=== PATIENT | male | born 1985 | race African-American/Black ===

== ENCOUNTER 2016-05-02 18:45 | Emergency (ER) | payer MEDICAID ==
[2016-05-02] MEDS ORDERED: KETOROLAC 30 MG/ML VIAL ONE (20:35)
[2016-05-02] MEDS ORDERED: ED CLINDAMYCIN PREMIX 50 ML IV ONE ×2 (21:52→22:03)
== END 2016-05-02 23:03 | disposition home or self-care (01) ==
LOC: ER 18:45
DX: S56.32 Laceration of extensor or abductor muscles, fascia and tendons of thumb at forearm level (principal); L03.012 Cellulitis of left finger; W25.XXXS Contact with sharp glass, sequela; I10 Essential (primary) hypertension; F17.210 Nicotine dependence, cigarettes, uncomplicated
CPT/HCPCS: 36415; 80048; 85025; 87040; 96365; 96375